=== PATIENT | male | born 1980 | race Caucasian/White ===

== ENCOUNTER 2017-01-03 12:26 | Emergency (ER) | payer BC ==
[2017-01-03 12:35] VITALS: BP 121/86
== END 2017-01-03 15:08 | disposition home or self-care (01) ==
LOC: ED 12:26
DX: M79.672 Pain in left foot (principal)

== ENCOUNTER 2017-05-26 18:39 | Emergency (ER) | payer BC ==
[~2017-05-26] VITALS: Ht 162.6 cm; Wt 72.6 kg
[2017-05-26 18:52] VITALS: Ht 162.6 cm; Wt 72.6 kg
[2017-05-26 20:47] VITALS: BP 130/92
== END 2017-05-26 20:47 | disposition home or self-care (01) ==
LOC: ED 18:39
DX: K52.9 Noninfective gastroenteritis and colitis, unspecified (principal)
CPT/HCPCS: J7030; Q0162